=== PATIENT | female | born 1955 | race Caucasian/White ===

== ENCOUNTER → 2016-11-30 | Day surgery (SDC) | payer OTHER ==
[~2016-11-30] MED LIST: ACETAMINOPHEN/HYDROcodone 325 MG/5 MG TAB ONE; AUGM500T7 PO; BUPIVACAINE/EPINEPHRINE 0.25% PF 30 ML VIAL ONE; HYDR-3516 PO; HYDR-3533 PO; KETOROLAC TROMETHAMINE 30 MG/ML (IVP) VIAL IV PUSH ONE; LACTATED RINGER'S 1000 ML INJ 1,000 ML ONE; LEVO500T3 PO; METF500T PO; METR500T10 PO; MIDAZOLAM HCL 2 MG/2 ML VIAL ONE; ONDANSETRON HCL 4 MG/2 ML VIAL IV PUSH ONE; PROPOFOL 200 MG/20 ML AMP IV ONE; ceFAZolin 2 GM PREMIX 50 ML ONE; metroNIDAZOLE 500 MG INJ 100 ML IV ONE
--- NOTE | 2016-11-30 15:17 | TN ---
cc: DELANEY DICKSON M.D. DATE OF SURGERY: 11/30/2016 PREOPERATIVE DIAGNOSIS Chronic calculous cholecystitis and umbilical hernia. POSTOPERATIVE DIAGNOSIS Acute and chronic calculous cholecystitis and umbilical hernia. PROCEDURE Laparoscopic cholecystectomy, open repair umbilical hernia. SURGEON Dr. Delaney Dickson. ANESTHESIA General. INDICATIONS A very pleasant 61-year-old woman who presents with a history of abdominal pain after eating fatty foods at her daughter's birthday green party. She went to the emergency department after her pain would not resolve and a CT demonstrated "diverticular disease". She received IV antibiotics and a prescription for Hydrocodone. Her pain did not resolve and a CT scan and ultrasound were repeated at the [facility] and cholecystitis and gallstones were diagnosed. She has kept in the hospital for 3 days and then discharged when her white blood cell count went down. She followed up in the office with resolution of her acute symptoms with antibiotics. INTRAOPERATIVE FINDINGS Consistent with acute and chronic calculous cholecystitis. A very thickened gallbladder wall. Gallbladder packed with stones. Gallbladder and stones sent to pathology. Estimated blood loss less than 5 mL. DESCRIPTION OF PROCEDURE IN DETAIL The patient was identified as Kaylan Hernandez, taken to the operating room and placed in supine position. Sequential compression devices were placed on bilateral lower extremities. Following induction of adequate general endotracheal anesthesia the patient's abdomen was prepped and draped in usual sterile fashion with Betadine. Time-out procedure was performed. Following completion of time-out procedure to everyone's satisfaction within the room 0.25% Marcaine with epinephrine was placed in and around the umbilicus. Infraumbilical transverse incision about 2 cm in length was carried out with scalpel and dissection continued posteriorly. Herniated fatty tissue from the preperitoneal space was from surrounding subcutaneous tissue until the fascial defect was identified. The fat was amputated with a harmonic scalpel and the fascial defect which was very small was opened using scissors and entry in the peritoneal cavity was facilitated with the surgeon's finger. The applied medical balloon Tillman trocar was placed in the peritoneal cavity, its balloon inflated with C02 insufflation until a level of 15 mmHg ensued. The patient was placed in a reverse Trendelenburg position, turned to the left. Two upper abdominal 5 mm trocars were placed in the peritoneal cavity under direct laparoscopic view after incision of skin with a scalpel. Gallbladder was immediately identified, it was covered in an omental rind which was carefully taken down using combination of blunt dissection and harmonic scalpel. The gallbladder is very tense and inflamed with a thickened wall. The gallbladder was emptied of bile, opening the apex of the gallbladder with the harmonic scalpel and suctioning out purulent cloudy bile. A 0-PDS Endoloop was placed across the top of the gallbladder to prevent further leakage and prevent droppage of stones. The gallbladder is then removed from the gallbladder fossa in a dome down technique using a harmonic scalpel. Cystic artery was divided with the harmonic scalpel. The cystic duct was isolated from surrounding tissues and ligated distally with 0-PDS Endoloop. The gallbladder at its junction with the cystic duct was divided with the harmonic scalpel. The gallbladder was placed into an Endo-retriever bag and removed through the infraumbilical fascial port incision site which had to be extended inferiorly to allow for removal of the gallbladder. The right upper quadrant was examined and it was suctioned and irrigated. The gallbladder fossa was hemostatic. The cystic duct ligature remained intact. The cystic arterial stump was hemostatic. All bilious drainage was removed. There were no spilled stones. There was no evidence of bleeding. Remaining local anesthetic was placed in the right upper quadrant. Trocars were removed under direct visualization. There was no evidence of bleeding from trocar sites. The abdomen was desufflated through the infraumbilical port, was then removed. The infraumbilical fascial incision was closed with interrupted 0 Vicryl sutures. Port sites were irrigated with saline. Skin incisions were approximated with 4-0 Monocryl subcuticular sutures. Dressings were applied with Mastisol, half-inch brown Steri-Strips. Gauze and Tegaderm were placed over the umbilicus. The patient tolerated the procedure without apparent complication. Sponge, needle, and instrument counts were correct at the end of the case. MD ASAD Landis/PAWAN /2:23 PM /2:47 PM
== END | disposition home or self-care (01) ==
LOC: ESDC 11:07
PROVIDERS: ATTEND Surgery Trauma Surgery
DX: K80.10 Calculus of gallbladder with chronic cholecystitis without obstruction (principal); K42.9 Umbilical hernia without obstruction or gangrene
CPT/HCPCS: 00750; 00790; 47562; 49585; 88304; J0690; J1885; J2250; J2405; J3010; J7120